=== PATIENT | male | born 1955 | race Hispanic/Latino ===

== ENCOUNTER 2022-07-10 12:28 | Emergency (ER) | payer OTHER ==
--- OUTSIDE RECORDS SUMMARY | 2022-07-10 12:31 | XMS REPORT | Continuity of Care Document ---
:1955 Author Organization [facility] t Address [address] [place] [address] Care Team Providers Name Role Phone [place] Jackson MICHEL Primary Care Physician [phone] DAVID BLAS Attending Clinician Unavailable CHANTELL BERGMAN Attending Clinician Unavailable CHANTELL BERGMAN Attending Clinician Unavailable MARY CATHERINE Attending Clinician Unavailable Payers Payer Name Policy Type Policy Number Effective Date Expiration Date S ource HIM BCBS BLUE [id number] 2015 [facility] 00:00:00 Problems This patient has no known problems. Allergies, Adverse Reactions, Alerts Allergy Allergy Status Severity Reaction(s) Onset Inactive Treating Comm ents Source Name Type Date Date Clinician NO KNOWN Drug Active Univers ALLERGIE Class ity [facility] Medications Ordered Filled Start Stop Current Ordering Indication Dosage Frequency Signature Comments Components Source Medication Medication Date Date Medication? Clinician (SIG) Name Name TAKE 2021-0 No TABLET BY 8-09 MOUTH THREE 00:00: TIMES DAILY 00 TAKE 2021-0 No 125 TABLET BY 8-09 MOUTH EVERY 00:00: 8 HOURS 00 NEEDED TAKE 2021-0 No TABLET BY 8-08 MOUTH ONCE 00:00: DAILY 00 TAKE 1 2021-0 No TABLET BY 8-03 MOUTH THREE 00:00: TIMES DAILY 00 FOR 30 DAYS TAKE 1 2021-0 No 100 CAPSULE BY 8-03 MOUTH ONCE 00:00: DAILY FOR 00 30 DAYS TAKE 30 ML 2-0 No BY MOUTH 8-03 ONCE DAILY 00:00: NEEDED 00 FOR CONSTIPATIO N TAKE 2021-0 No TABLET BY 8-03 MOUTH THREE 00:00: TIMES DAILY 00 FOR 30 DAYS TAKE 1 2021-0 No 100 CAPSULE BY 8-03 MOUTH ONCE 00:00: DAILY FOR 00 30 DAYS TAKE 30 ML 2022-0 No BY MOUTH 8-03 ONCE DAILY 00:00: NEEDED 00 FOR CONSTIPATIO N lisinopril 2-0 No 1mg 20 5-19 mg-hydrochl 00:00: orothiazide 00 12.5 mg tablet metformin 2-0 No 1mg 1,000 mg 5-19 tablet 00:00: 00 carbidopa 2-0 No 1mg 10 5-19 mg-levodopa 00:00: 100 mg 00 tablet amantadine 2-0 No 1mg HCl 100 mg 5-19 capsule 00:00: 00 Dose 2-0 No Unknown 5-19 00:00: 00 Dose 2-0 No Unknown 5-19 00:00: 00 lisinopril 2-0 No 1mg 20 5-19 mg-hydrochl 00:00: orothiazide 00 12.5 mg tablet metformin 2-0 No 1mg 1,000 mg 5-19 tablet 00:00: 00 carbidopa 2-0 No 1mg 10 5-19 mg-levodopa 00:00: 100 mg 00 tablet amantadine 2-0 No 1mg HCl 100 mg 5-19 capsule 00:00: 00 Dose 2-0 No Unknown 5-19 00:00: 00 Dose 2-0 No Unknown 5-19 00:00: 00 Dose 2-0 No Unknown 5-09 00:00: 00 Dose 2-0 No Unknown 5-09 00:00: 00 Vitamin D2 2-0 No 1(50,00 1,250 mcg 3-14 0 unit) (50,000 00:00: unit) 00 capsule Vitamin D2 2-0 No 1(50,00 1,250 mcg 3-14 0 unit) (50,000 00:00: unit) 00 capsule Dose 2-0 No Unknown 3-10 00:00: 00 Dose 2-0 No Unknown 3-10 00:00: 00 Dose 2-0 No Unknown 3-10 00:00: 00 Dose 2-0 No Unknown 3-10 00:00: 00 Dose 2-0 No Unknown 3-10 00:00: 00 Dose 2022-0 No Unknown 3-10 00:00: 00 Dose 2-0 No Unknown 3-10 00:00: 00 Dose 2-0 No Unknown 3-10 00:00: 00 Dose 2022-0 No Unknown 3-10 00:00: 00 Dose 2022-0 No Unknown 3-10 00:00: 00 Dose 2022-0 No Unknown 3-10 00:00: 00 Dose 2022-0 No Unknown 3-10 00:00: 00 Dose 2022-0 No Unknown 3-10 00:00: 00 Dose 2022-0 No Unknown 3-10 00:00: 00 Dose 2022-0 No Unknown 3-10 00:00: 00 Dose 2022-0 No Unknown 3-10 00:00: 00 Dose 2022-0 No Unknown 3-10 00:00: 00 Dose 2022-0 No Unknown 3-10 00:00: 00 Dose 2022-0 No Unknown 3-10 00:00: 00 Dose 2022-0 No Unknown 3-10 00:00: 00 Dose 2022-0 No Unknown 3-10 00:00: 00 Dose 2022-0 No Unknown 3-10 00:00: 00 Dose 2022-0 No Unknown 3-10 00:00: 00 Dose 2022-0 No Unknown 3-10 00:00: 00 Dose 2022-0 No Unknown 3-10 00:00: 00 Dose 2022-0 No Unknown 3-10 00:00: 00 Dose 2022-0 No Unknown 3-10 00:00: 00 Dose 2022-0 No Unknown 3-10 00:00: 00 Dose 2022-0 No Unknown 3-10 00:00: 00 Dose 2022-0 No Unknown 3-10 00:00: 00 Dose 2022-0 No Unknown 3-10 00:00: 00 Dose 2022-0 No Unknown 3-10 00:00: 00 Dose 2022-0 No Unknown 3-10 00:00: 00 Dose 2022-0 No Unknown 3-10 00:00: 00 Dose 2022-0 No Unknown 3-10 00:00: 00 Dose 2022-0 No Unknown 3-10 00:00: 00 ciprofloxac 2022-0 No 1mg in 500 mg 2-16 tablet 00:00: 00 meclizine 2-0 No 1mg 12.5 mg 2-16 tablet 00:00: 00 lactulose 2-0 No 30gram/ 10 gram/15 2-16 15 mL mL oral 00:00: solution 00 ciprofloxac 2-0 No 1mg in 500 mg 2-16 tablet 00:00: 00 meclizine 2-0 No 1mg 12.5 mg 2-16 tablet 00:00: 00 lactulose 2-0 No 30gram/ 10 gram/15 2-16 15 mL mL oral 00:00: solution 00 lisinopril 2-0 No 1mg 20 2-15 mg-hydrochl 00:00: orothiazide 00 12.5 mg tablet metformin 2-0 No 1mg 1,000 mg 2-15 tablet 00:00: 00 amantadine 2-0 No 1mg HCl 100 mg 2-15 capsule 00:00: 00 lisinopril 2-0 No 1mg 20 2-15 mg-hydrochl 00:00: orothiazide 00 12.5 mg tablet metformin 2-0 No 1mg 1,000 mg 2-15 tablet 00:00: 00 amantadine 2-0 No 1mg HCl 100 mg 2-15 capsule 00:00: 00 Vital Signs Vital Name Observation Time Observation Value Comments Source BP Systolic 2022-06-15 17:28:00 96 mm[Hg] BP Diastolic 2022-06-15 17:28:00 63 mm[Hg] Weight Measured 2022-06-15 17:28:00 226.80 pounds Height Measured 2022-06-15 17:28:00 71.00 inches Body Temperature 2022-06-15 17:28:00 98.20 degrees Heart Rate 2022-06-15 17:28:00 102.00 /min Respiratory Rate 2022-06-15 17:28:00 18.00 /min BP Systolic 2022-06-09 16:42:00 127 mm[Hg] BP Diastolic 2022-06-09 16:42:00 76 mm[Hg] Weight Measured 2022-06-09 16:42:00 225.40 pounds Height Measured 2022-06-09 16:42:00 71.00 inches Body Temperature 2022-06-09 16:42:00 97.80 degrees Heart Rate 2022-06-09 16:42:00 83.00 /min Respiratory Rate 2022-06-09 16:42:00 BP Systolic 2022-03-25 13:24:00 135 mm[Hg] BP Diastolic 2022-03-25 13:24:00 79 mm[Hg] Weight Measured 2022-03-25 13:24:00 231.60 pounds Height Measured 2022-03-25 13:24:00 71.00 inches Body Temperature 2022-03-25 13:24:00 97.40 degrees Heart Rate 2022-03-25 13:24:00 77.00 /min Respiratory Rate 2022-03-25 13:24:00 BP Systolic 2021-12-22 16:49:00 147 mm[Hg] BP Diastolic 2021-12-22 16:49:00 84 mm[Hg] Weight Measured 2021-12-22 16:49:00 239.60 pounds Height Measured 2021-12-22 16:49:00 71.00 inches Body Temperature 2021-12-22 16:49:00 97.90 degrees Heart Rate 2021-12-22 16:49:00 85.00 /min Respiratory Rate 2021-12-22 16:49:00 16.00 /min Procedures This patient has no known procedures. Plan of Care Planned Activity Planned Date Details Comments Source Goal Plan of Care Note [code = 33799-1] Goal Plan of Care Note [code = 67460-4] Goal Plan of Care Note [code = 04671-7] Goal Plan of Care Note [code = 19909-3] Goal Plan of Care Note [code = 37257-0] Goal Plan of Care Note [code = 88983-7] Goal Plan of Care Note [code = 87997-7] Goal Plan of Care Note [code = 06828-9] Goal Plan of Care Note [code = 27753-4] Goal Plan of Care Note [code = 44034-7] Goal Plan of Care Note [code = 24889-6] Goal Plan of Care Note [code = 42502-0] Goal Plan of Care Note [code = 12517-6] Goal Plan of Care Note [code = 88211-9] Goal Plan of Care Note [code = 51472-0] Goal Plan of Care Note [code = 15684-6] Goal Plan of Care Note [code = 43798-5] Goal Plan of Care Note [code = 69520-5] Goal Plan of Care Note [code = 13427-2] Goal Plan of Care Note [code = 68075-0] Goal Plan of Care Note [code = 74663-8] Goal Plan of Care Note [code = 95006-3] Encounters Start End Encounter Admission Attending Care Care Encounter Source Date/Time Date/Time Type Type Clinicians Facility Department ID 2022-06-15 2022-06-15 Outpatient [id number] 00:00:00 00:00:00 Visit [id number] 2022-06-09 2022-06-09 Outpatient [id number] 00:00:00 00:00:00 Visit [id number] 2021-04-15 2021-04-15 Outpatient Diego BLAS [facility] [id number] Univers 09:00:00 09:00:00 DAVID [facility] 2021-02-23 2021-02-23 Outpatient CHANTELL JIMENEZ [facility] [id number] Univers 09:20:00 09:20:00 CHANTELL BERGMAN [facility] 2021-02-23 2021-02-23 Outpatient CHANTELL JIMENEZ [facility] [id number] Univers 09:20:00 09:20:00 CHANTELL BERGMAN [id number] [facility] 2020-09-29 2020-09-29 Outpatient Diego CATHERINE [facility] [id number] Univers 15:40:00 15:40:00 MARY [id number] ity o f [facility] 2020-09-29 2020-09-29 Outpatient Diego CATHERINE [facility] [id number] Univers 15:40:00 15:40:00 MARY tuttle o f [facility] 2020-08-25 2020-08-25 Outpatient CHANTELL JIMENEZ [facility] [id number] Univers 10:00:00 10:00:00 CHANTELL BERGMAN [facility] 2020-08-11 2020-08-11 Emergency X [facility] ERT [id number] Univers 16:03:00 16:03:00 [facility] Results Test Description Test Time Test Comments Results Result Comments Source VITAMIN D, 25 OH 2021-12-29 03:49:41 Test Item Value Reference Range Interpretation Comme nts VITAMIN D, 25 OH (test code 15 NG/ML SEE BELOW L NOTE: 25-HYDROXYVITAMIN D ASSAY = 4958) INCLUDES 25-HYD ROXYVITAMIN D2 AND D3. METHODOLOGY IS CHEMILUMINESCENT IMMUNOASSAY. INTERPRETIVE RANGES PED IATRIC (<17 YEARS) . . . . . . . . . . . NG/ML 20-100ADULT: INSUFFICIENT . . . . . . . . . . . . . . NG/ML <20 S UBOPTIMAL . . . . . . . . . . . . . . . NG/ML 20-29 OPTIMAL . . . . . . . . . . . . . . . . . NG/ML 30-100 U NLESS OTHERWISE INDICATED, ALL TESTING PERFORMED ATCLINICAL PATH [employer] [address] [place] [address] LABOR[address] DIRE CTOR: JAVAN HUDSON M.D. CLIA NUMBER [id number] [facility] [place]. [id number] VITAMIN D, 25 [id number] 00:00:00 Test Item Value Reference Range Interpretation Comments VITAMIN D, 25 OH (test code = 4958) 15 NG/ML VITAMIN D, 25 [id number] 00:00:00 Test Item Value Reference Range Interpretation Comments VITAMIN D, 25 OH (test code = 4958) 15 NG/ML VITAMIN D, 25 [id number] 00:00:00 Test Item Value Reference Range Interpretation Comments VITAMIN D, 25 OH (test code = 4958) 15 NG/ML TSH, THIRD [id number] 01:22:52 Test Item Value Reference Range Interpretation Comments TSH, THIRD GENERATION (test code 1.500 UIU/ML 0.400-4.100 = 2821) VITAMIN [id number] 01:22:52 Test Item Value Reference Range Interpretation Comments VITAMIN B-12 (test code = 2840) 424 PG/ML 200-950 COMPREHENSIVE METABOLIC [id number] 00:35:57 Test Item Value Reference Range Interpretation Comments GLUCOSE (test code = 95 MG/DL 70-99 2216) BUN (test code = 9 MG/DL 8-23 2207) CREATININE (test 0.80 MG/DL 0.80-1.40 code = 221) eGFR (2020 CKD-EPI) 99 ML/MIN/1.73 >60 (test code = 49259) CALC BUN/CREAT (test 11 RATIO 6-28 code = 223) SODIUM (test code = 136 MEQ/L 749-994 9344) POTASSIUM (test code 4.1 MEQ/L 3.5-5.4 = 2227) CHLORIDE (test code 101 MEQ/L 95-107 = 2214) CARBON DIOXIDE (test 19 MEQ/L 19-31 code = 2205) CALCIUM (test code = 9.2 MG/DL 8.5-10.5 2208) PROTEIN, TOTAL (test 7.4 G/DL 6.1-8.3 code = 2228) ALBUMIN (test code = 4.3 G/DL 3.5-5.2 2200) CALC GLOBULIN (test 3.1 G/DL 1.9-3.7 code = 2239) CALC A/G RATIO (test 1.4 RATIO 1.0-2.6 code = 2233) BILIRUBIN, TOTAL 0.3 MG/DL See_Comment [Automated message] (test code = 2206) The syste m which generated this result transmit gilberto reference range : <=1.2. The refe rence range was not u sed to interpret th is result as normal/abnormal . ALKALINE PHOSPHATASE 96 U/L 40-123 (test code = 2203) AST (test code = 11 U/L 9-50 2217) ALT (test code = 11 U/L 5-50 2218) LIPID [id number] 00:35:57 Test Item Value Reference Range Interpretation Comments CHOLESTEROL (test 192 MG/DL <200 code = 2210) TRIGLYCERIDES (test 130 MG/DL <150 code = 2232) HDL CHOLESTEROL (test 38 MG/DL >39 L code = 222) CALC LDL CHOL (test 129 MG/DL <100 H NOTE: C ALCULATED LDL code = 2237) IS BASED ON JESSY-NORTH METHOD WHICHINCLUDES ADJUSTABLE TRIGLYCERIDE:VL DL CHOLESTEROL RAT IO.THIS FACTOR VARIES B Y MEASURED TRIGLY CERIDE AND NON-HDLCHOL ESTEROL CONCENTRATIONS WITH INCREASED CALCU LATED LDL SEENIN HIGH ER TRIGLYCERIDE OR LOWER NON-HDL SPECIME NS. FOR MOREINFORMATION , SEE CLIENT ANNOUNCE MENT AT [email or web address] RISK RATIO LDL/HDL 3.39 RATIO <3.55 (test code = 2238) COMPREHENSIVE METABOLIC [id number] 00:00:00 Test Item Value Reference Range Interpretation Comments GLUCOSE (test code = 2217) 95 MG/DL BUN (test code = 2208) 9 MG/DL CREATININE (test code = 2214) 0.80 MG/DL eGFR (2020 CKD-EPI) (test code 99 ML/MIN/1.73 = 38577) CALC BUN/CREAT (test code = 11 RATIO 5) SODIUM (test code = 2231) 136 MEQ/L POTASSIUM (test code = 2228) 4.1 MEQ/L CHLORIDE (test code = 2215) 101 MEQ/L CARBON DIOXIDE (test code = 19 MEQ/L 2205) CALCIUM (test code = 2209) 9.2 MG/DL PROTEIN, TOTAL (test code = 7.4 G/DL 2228) ALBUMIN (test code = 2201) 4.3 G/DL CALC GLOBULIN (test code = 3.1 G/DL 2239) CALC A/G RATIO (test code = 1.4 RATIO 2233) BILIRUBIN, TOTAL (test code = 0.3 MG/DL 2206) ALKALINE PHOSPHATASE (test 96 U/L code = 2204) AST (test code = 2218) 11 U/L ALT (test code = 2219) 11 U/L LIPID [id number] 00:00:00 Test Item Value Reference Range Interpretation Comments CHOLESTEROL (test code = 2210) 192 MG/DL TRIGLYCERIDES (test code = 2232) 130 MG/DL HDL CHOLESTEROL (test code = 2220) 38 MG/DL CALC LDL CHOL (test code = 2237) 129 MG/DL RISK RATIO LDL/HDL (test code = 3.39 RATIO 2238) [id number] 00:00:00 Test Item Value Reference Range Interpretation Comments TSH, THIRD GENERATION (test code 1.500 UIU/ML = 2821) [id number] 00:00:00 Test Item Value Reference Range Interpretation Comments TSH, THIRD GENERATION (test code 1.500 UIU/ML = 2821) VITAMIN [id number] 00:00:00 Test Item Value Reference Range Interpretation Comments VITAMIN B-12 (test code = 2840) 424 PG/ML VITAMIN [id number] 00:00:00 Test Item Value Reference Range Interpretation Comments VITAMIN B-12 (test code = 2840) 424 PG/ML COMPREHENSIVE METABOLIC [id number] 00:00:00 Test Item Value Reference Range Interpretation Comments GLUCOSE (test code = 2217) 95 MG/DL BUN (test code = 2208) 9 MG/DL CREATININE (test code = 2214) 0.80 MG/DL eGFR (2020 CKD-EPI) (test code 99 ML/MIN/1.73 = 13319) CALC BUN/CREAT (test code = 11 RATIO 2235) SODIUM (test code = 2231) 136 MEQ/L POTASSIUM (test code = 2228) 4.1 MEQ/L CHLORIDE (test code = 2215) 101 MEQ/L CARBON DIOXIDE (test code = 19 MEQ/L 2205) CALCIUM (test code = 2209) 9.2 MG/DL PROTEIN, TOTAL (test code = 7.4 G/DL 2228) ALBUMIN (test code = 2201) 4.3 G/DL CALC GLOBULIN (test code = 3.1 G/DL 2240) CALC A/G RATIO (test code = 1.4 RATIO 4) BILIRUBIN, TOTAL (test code = 0.3 MG/DL 2206) ALKALINE PHOSPHATASE (test 96 U/L code = 2204) AST (test code = 2218) 11 U/L ALT (test code = 2219) 11 U/L COMPREHENSIVE METABOLIC [id number] 00:00:00 Test Item Value Reference Range Interpretation Comments GLUCOSE (test code = 2217) 95 MG/DL BUN (test code = 2208) 9 MG/DL CREATININE (test code = 2214) 0.80 MG/DL eGFR (2020 CKD-EPI) (test code 99 ML/MIN/1.73 = 25077) CALC BUN/CREAT (test code = 11 RATIO 2235) SODIUM (test code = 2231) 136 MEQ/L POTASSIUM (test code = 2228) 4.1 MEQ/L CHLORIDE (test code = 2215) 101 MEQ/L CARBON DIOXIDE (test code = 19 MEQ/L 2206) CALCIUM (test code = 2209) 9.2 MG/DL PROTEIN, TOTAL (test code = 7.4 G/DL 2228) ALBUMIN (test code = 2201) 4.3 G/DL CALC GLOBULIN (test code = 3.1 G/DL 2240) CALC A/G RATIO (test code = 1.4 RATIO 2234) BILIRUBIN, TOTAL (test code = 0.3 MG/DL 2206) ALKALINE PHOSPHATASE (test 96 U/L code = 2204) AST (test code = 2218) 11 U/L ALT (test code = 2219) 11 U/L LIPID [id number] 00:00:00 Test Item Value Reference Range Interpretation Comments CHOLESTEROL (test code = 2210) 192 MG/DL TRIGLYCERIDES (test code = 2232) 130 MG/DL HDL CHOLESTEROL (test code = 2220) 38 MG/DL CALC LDL CHOL (test code = 2237) 129 MG/DL RISK RATIO LDL/HDL (test code = 3.39 RATIO 2238) LIPID [id number] 00:00:00 Test Item Value Reference Range Interpretation Comments CHOLESTEROL (test code = 2210) 192 MG/DL TRIGLYCERIDES (test code = 2232) 130 MG/DL HDL CHOLESTEROL (test code = 2220) 38 MG/DL CALC LDL CHOL (test code = 2237) 129 MG/DL RISK RATIO LDL/HDL (test code = 3.39 RATIO 2238) [id number] 00:00:00 Test Item Value Reference Range Interpretation Comments TSH, THIRD GENERATION (test code 1.500 UIU/ML = 2821) [id number] 00:00:00 Test Item Value Reference Range Interpretation Comments TSH, THIRD GENERATION (test code 1.500 UIU/ML = 2821) [id number] 00:00:00 Test Item Value Reference Range Interpretation Comments TSH, THIRD GENERATION (test code 1.500 UIU/ML = 2821) VITAMIN [id number] 00:00:00 Test Item Value Reference Range Interpretation Comments VITAMIN B-12 (test code = 2840) 424 PG/ML VITAMIN [id number] 00:00:00 Test Item Value Reference Range Interpretation Comments VITAMIN B-12 (test code = 2840) 424 PG/ML VITAMIN [id number] 00:00:00 Test Item Value Reference Range Interpretation Comments VITAMIN B-12 (test code = 2840) 424 PG/ML HEMOGLOBIN [id number] 03:11:33 Test Item Value Reference Range Interpretation Comments HEMOGLOBIN A1c (test code = 57009) 6.0 % 4.2-5.6 H CBC W/AUTO DIFF WITH [id number] 02:45:06 Test Item Value Reference Range Interpretation Comments WBC (test code = 10.6 K/UL 3.5-11.0 1001) RBC (test code = 4.83 M/UL 4.50-6.10 1002) HEMOGLOBIN (test code 14.3 G/DL 13.5-17.0 = 1003) HEMATOCRIT (test code 42.2 % 40.0-51.0 = 1004) MCV (test code = 87.4 fL 80.0-99.0 1005) MCH (test code = 29.6 PG 25.0-33.0 1006) MCHC (test code = 33.9 G/DL 31.0-36.0 1007) RDW (test code = 13.9 % 11.5-15.0 1038) NEUTROPHILS (test 60.8 % code = 1008) LYMPHOCYTES (test 28.9 % code = 1010) MONOCYTES (test code 7.5 % = 1011) EOSINOPHILS (test 1.8 % code = 1012) BASOPHILS (test code 0.8 % = 1013) IMMATURE GRANULOCYTES 0.2 % (test code = 1036) NUCLEATED RBCS (test 0.0 /100 WBC'S See_Comment [Aut omated code = 1065) message] The sy stem which generated this result transmitted reference range : 0.0. The refere nce range was not u sed to interpret th is result as normal/abnormal . PLATELET COUNT (test 351 K/UL 130-400 code = 1015) ABSOLUTE NEUTROPHILS 6.46 K/UL 1.50-7.50 (test code = 1066) ABSOLUTE LYMPHOCYTES 3.07 K/UL 1.00-4.00 (test code = 1067) ABSOLUTE MONOCYTES 0.80 K/UL 0.20-1.00 (test code = 1068) ABSOLUTE EOSINOPHILS 0.19 K/UL 0.00-0.50 (test code = 1040) ABSOLUTE BASOPHILS 0.09 K/UL 0.00-0.20 (test code = 1069) ABS IMMATURE 0.02 K/UL 0.00-0.10 GRANULOCYTES (test code = 1020) ABS NUCLEATED RBCS 0.00 K/UL 0.00-0.11 (test code = 40786) HEMOGLOBIN [id number] 00:00:00 Test Item Value Reference Range Interpretation Comments HEMOGLOBIN A1c (test code = 16791) 6.0 % HEMOGLOBIN [id number] 00:00:00 Test Item Value Reference Range Interpretation Comments HEMOGLOBIN A1c (test code = 28310) 6.0 % CBC W/AUTO [id number] 00:00:00 Test Item Value Reference Range Interpretation Comments WBC (test code = 1001) 10.6 K/UL RBC (test code = 1002) 4.83 M/UL HEMOGLOBIN (test code = 1003) 14.3 G/DL HEMATOCRIT (test code = 1004) 42.2 % MCV (test code = 1005) 87.4 fL MCH (test code = 1006) 29.6 PG MCHC (test code = 1007) 33.9 G/DL RDW (test code = 1038) 13.9 % NEUTROPHILS (test code = 1008) 60.8 % LYMPHOCYTES (test code = 1010) 28.9 % MONOCYTES (test code = 1011) 7.5 % EOSINOPHILS (test code = 1012) 1.8 % BASOPHILS (test code = 1013) 0.8 % IMMATURE GRANULOCYTES (test 0.2 % code = 1036) NUCLEATED RBCS (test code = 0.0 /100WBC'S 1065) PLATELET COUNT (test code = 351 K/UL 1015) ABSOLUTE NEUTROPHILS (test code 6.46 K/UL = 1066) ABSOLUTE LYMPHOCYTES (test code 3.07 K/UL = 1067) ABSOLUTE MONOCYTES (test code = 0.80 K/UL 1068) ABSOLUTE EOSINOPHILS (test code 0.19 K/UL = 1040) ABSOLUTE BASOPHILS (test code = 0.09 K/UL 1069) ABS IMMATURE GRANULOCYTES (test 0.02 K/UL code = 1020) ABS NUCLEATED RBCS (test code = 0.00 K/UL 58183) CBC W/AUTO [id number] 00:00:00 Test Item Value Reference Range Interpretation Comments WBC (test code = 1001) 10.6 K/UL RBC (test code = 1002) 4.83 M/UL HEMOGLOBIN (test code = 1003) 14.3 G/DL HEMATOCRIT (test code = 1004) 42.2 % MCV (test code = 1005) 87.4 fL MCH (test code = 1006) 29.6 PG MCHC (test code = 1007) 33.9 G/DL RDW (test code = 1038) 13.9 % NEUTROPHILS (test code = 1008) 60.8 % LYMPHOCYTES (test code = 1010) 28.9 % MONOCYTES (test code = 1011) 7.5 % EOSINOPHILS (test code = 1012) 1.8 % BASOPHILS (test code = 1013) 0.8 % IMMATURE GRANULOCYTES (test 0.2 % code = 1036) NUCLEATED RBCS (test code = 0.0 /100WBC'S 1065) PLATELET COUNT (test code = 351 K/UL 1015) ABSOLUTE NEUTROPHILS (test code 6.46 K/UL = 1066) ABSOLUTE LYMPHOCYTES (test code 3.07 K/UL = 1067) ABSOLUTE MONOCYTES (test code = 0.80 K/UL 1068) ABSOLUTE EOSINOPHILS (test code 0.19 K/UL = 1040) ABSOLUTE BASOPHILS (test code = 0.09 K/UL 1069) ABS IMMATURE GRANULOCYTES (test 0.02 K/UL code = 1020) ABS NUCLEATED RBCS (test code = 0.00 K/UL 53496) HEMOGLOBIN [id number] 00:00:00 Test Item Value Reference Range Interpretation Comments HEMOGLOBIN A1c (test code = 60653) 6.0 % HEMOGLOBIN [id number] 00:00:00 Test Item Value Reference Range Interpretation Comments HEMOGLOBIN A1c (test code = 45215) 6.0 % HEMOGLOBIN [id number] 00:00:00 Test Item Value Reference Range Interpretation Comments HEMOGLOBIN A1c (test code = 17293) 6.0 % CBC W/AUTO [id number] 00:00:00 Test Item Value Reference Range Interpretation Comments WBC (test code = 1001) 10.6 K/UL RBC (test code = 1002) 4.83 M/UL HEMOGLOBIN (test code = 1003) 14.3 G/DL HEMATOCRIT (test code = 1004) 42.2 % MCV (test code = 1005) 87.4 fL MCH (test code = 1006) 29.6 PG MCHC (test code = 1007) 33.9 G/DL RDW (test code = 1038) 13.9 % NEUTROPHILS (test code = 1008) 60.8 % LYMPHOCYTES (test code = 1010) 28.9 % MONOCYTES (test code = 1011) 7.5 % EOSINOPHILS (test code = 1012) 1.8 % BASOPHILS (test code = 1013) 0.8 % IMMATURE GRANULOCYTES (test 0.2 % code = 1036) NUCLEATED RBCS (test code = 0.0 /100WBC'S 1065) PLATELET COUNT (test code = 351 K/UL 1015) ABSOLUTE NEUTROPHILS (test code 6.46 K/UL = 1066) ABSOLUTE LYMPHOCYTES (test code 3.07 K/UL = 1067) ABSOLUTE MONOCYTES (test code = 0.80 K/UL 1068) ABSOLUTE EOSINOPHILS (test code 0.19 K/UL = 1040) ABSOLUTE BASOPHILS (test code = 0.09 K/UL 1069) ABS IMMATURE GRANULOCYTES (test 0.02 K/UL code = 1020) ABS NUCLEATED RBCS (test code = 0.00 K/UL 71927) CBC W/AUTO [id number] 00:00:00 Test Item Value Reference Range Interpretation Comments WBC (test code = 1001) 10.6 K/UL RBC (test code = 1002) 4.83 M/UL HEMOGLOBIN (test code = 1003) 14.3 G/DL HEMATOCRIT (test code = 1004) 42.2 % MCV (test code = 1005) 87.4 fL MCH (test code = 1006) 29.6 PG MCHC (test code = 1007) 33.9 G/DL RDW (test code = 1038) 13.9 % NEUTROPHILS (test code = 1008) 60.8 % LYMPHOCYTES (test code = 1010) 28.9 % MONOCYTES (test code = 1011) 7.5 % EOSINOPHILS (test code = 1012) 1.8 % BASOPHILS (test code = 1013) 0.8 % IMMATURE GRANULOCYTES (test 0.2 % code = 1036) NUCLEATED RBCS (test code = 0.0 /100WBC'S 1065) PLATELET COUNT (test code = 351 K/UL 1015) ABSOLUTE NEUTROPHILS (test code 6.46 K/UL = 1066) ABSOLUTE LYMPHOCYTES (test code 3.07 K/UL = 1067) ABSOLUTE MONOCYTES (test code = 0.80 K/UL 1068) ABSOLUTE EOSINOPHILS (test code 0.19 K/UL = 1040) ABSOLUTE BASOPHILS (test code = 0.09 K/UL 1069) ABS IMMATURE GRANULOCYTES (test 0.02 K/UL code = 1020) ABS NUCLEATED RBCS (test code = 0.00 K/UL 37539) CBC W/AUTO [id number] 00:00:00 Test Item Value Reference Range Interpretation Comments WBC (test code = 1001) 10.6 K/UL RBC (test code = 1002) 4.83 M/UL HEMOGLOBIN (test code = 1003) 14.3 G/DL HEMATOCRIT (test code = 1004) 42.2 % MCV (test code = 1005) 87.4 fL MCH (test code = 1006) 29.6 PG MCHC (test code = 1007) 33.9 G/DL RDW (test code = 1038) 13.9 % NEUTROPHILS (test code = 1008) 60.8 % LYMPHOCYTES (test code = 1010) 28.9 % MONOCYTES (test code = 1011) 7.5 % EOSINOPHILS (test code = 1012) 1.8 % BASOPHILS (test code = 1013) 0.8 % IMMATURE GRANULOCYTES (test 0.2 % code = 1036) NUCLEATED RBCS (test code = 0.0 /100WBC'S 1065) PLATELET COUNT (test code = 351 K/UL 1015) ABSOLUTE NEUTROPHILS (test code 6.46 K/UL = 1066) ABSOLUTE LYMPHOCYTES (test code 3.07 K/UL = 1067) ABSOLUTE MONOCYTES (test code = 0.80 K/UL 1068) ABSOLUTE EOSINOPHILS (test code 0.19 K/UL = 1040) ABSOLUTE BASOPHILS (test code = 0.09 K/UL 1069) ABS IMMATURE GRANULOCYTES (test 0.02 K/UL code = 1020) ABS NUCLEATED RBCS (test code = 0.00 K/UL 68492)
[2022-07-10 13:08] LABS: Absolute Lymphocytes (CBC) 3.8 K/uL (0.7-4.9); Hematocrit 42.3 % (39.6-49.0); Lymphocytes % 29.3 % (15.3-44.8); MCV 85.4 fL (80-100); MPV 7.1 fL (7.6-11.3); RBC Red Blood Cell Count 4.95 M/uL (4.33-5.43)
[2022-07-10] MEDS ORDERED: NA CHLORIDE 0.9% 1,000 ML ONE (13:09)
[2022-07-10 13:26] LABS: Potassium 3.5 mmol/L (3.5-5.1); Troponin High Sensitivity 4.3 pg/mL (<58.9)
--- NOTE | 2022-07-10 13:46 | RAD REPORT ---
EXAM DESCRIPTION: CT - Head Brain Wo Cont - 07/10/2022 1:31 pm CLINICAL HISTORY: Dizzy COMPARISON: <Comparisons> TECHNIQUE: All CT scans are performed using dose optimization technique as appropriate and may inclu de automated exposure control or mA/KV adjustment according to patient size. FINDINGS: No intracranial hemorrhage, hydrocephalus or extra-axial fluid collection.No areas of brai n edema or evidence of midline shift. The paranasal sinuses and mastoids are clear. The calvarium is intact. IMPRESSION: No acute intracranial abnormality.
--- NOTE | 2022-07-10 14:12 | RAD REPORT ---
EXAM DESCRIPTION: RAD - Chest Single View - 07/10/2022 1:56 pm CLINICAL HISTORY: dizziness COMPARISON: No comparisons FINDINGS: Lines: None. Lungs: No evidence of edema or pneumonia. Pleural: No significant pleural effusions or pneumothorax. Cardiac: The heart size is within normal limits. Mediastinum: Within normal limits. Bones: No acute fractures. Other: None IMPRESSION: No acute cardiopulmonary disease.
--- NOTE | 2022-07-10 14:40 | ER ---
Nurse's Notes [facility] Name: Macario Macias Age: 67 yrs Sex: Male : 1955 Arrival Date: 07/10/2022 Time: 12:29 Bed 3 Private MD: Diagnosis: Weakness;Dizziness and giddiness Presentation: 07/10 12:37 Chief complaint: Patient's son or daughter states: He just got finished cutting the iw grass and when he came in he said he felt weak. We checked his blood pressure and it was a little low. He is anxious and doesn't feel good. Coronavirus screen: At this time, the client does not indicate any symptoms associated with coronavirus-19. Ebola Screen: No symptoms or risks identified at this time. Initial Sepsis Screen: Does the patient meet any 2 criteria? No. Patient's initial sepsis screen is negative. Does the patient have a suspected source of infection? No. Patient's initial sepsis screen is negative. Risk Assessment: Do you want to hurt yourself or someone else? Patient reports no desire to harm self or others. Onset of symptoms was July 10, 2022. 12:37 Method Of Arrival: Wheelchair iw 12:37 Acuity: CRUZ 3 iw Triage Assessment: 12:40 General: Appears in no apparent distress. uncomfortable, well groomed, well developed, iw Behavior is anxious. Pain: Denies pain. EENT: No deficits noted. No signs and/or symptoms were reported regarding the EENT system. Neuro: Level of Consciousness is awake, alert, obeys commands, Oriented to person, place, time, situation, Student Life Coordinator are equal bilaterally Moves all extremities. Gait is unsteady, Speech is normal, Facial symmetry appears normal, Reports weakness Denies blurred vision dizziness, headache. Cardiovascular: No deficits noted. Chest pain is denied. Respiratory: No deficits noted. Denies shortness of breath. GI: No deficits noted. No signs and/or symptoms were reported involving the gastrointestinal system. : No deficits noted. No signs and/or symptoms were reported regarding the genitourinary system. Derm: No deficits noted. No signs and/or symptoms reported regarding the dermatologic system. Musculoskeletal: No deficits noted. No signs and/or symptoms reported regarding the musculoskeletal system. Historical: - Allergies: 12:40 No Known Allergies; iw - Home Meds: 12:40 metformin 500 mg Oral Tb24 1 tab once daily [Active]; lisinopril 10 mg Oral tab 1 tab iw once daily [Active]; - PMHx: 12:40 Diabetes mellitus; Hypertensive disorder; iw - PSHx: 12:40 knee; iw - Immunization history:: Adult Immunizations up to date, Client reports receiving the 2nd dose of the Covid vaccine, Client reports receiving the 1st dose of the Covid vaccine. - Social history:: Smoking status: Patient denies any tobacco usage or history of. Screenin:43 Abuse screen: Denies threats or abuse. Denies injuries from another. Nutritional eh3 screening: No deficits noted. Tuberculosis screening: No symptoms or risk factors identified. Fall Risk IV access (20 points). Ambulatory Aid- None/Bed Rest/Nurse Assist (0 pts). Gait- Weak (10 pts.). Mental Status- Oriented to own ability (0 pts). Total Reina Fall Scale indicates Low Risk Score (25-44 pts). Fall prevention measures have been instituted. Side Rails Up X 2 Placed close to Nursing Station Frequent Obs/Assesments occuring Family Present and informed to notify staff if they need to leave bedside As available Patient and Family Educated on Fall Prevention Program and strategies. Assessment: 13:04 General: Appears distressed, uncomfortable, Behavior is cooperative, appropriate for eh3 age, anxious. Pain: Denies pain. Neuro: Level of Consciousness is awake, alert, obeys commands, Oriented to person, place, time, situation. Cardiovascular: Capillary refill < 3 seconds Patient's skin is warm and dry. Respiratory: Airway is patent Respiratory effort is even, labored. GI: Abdomen is flat, non-distended. : No signs and/or symptoms were reported regarding the genitourinary system. EENT: No signs and/or symptoms were reported regarding the EENT system. Derm: Skin is diaphoretic. Musculoskeletal: Circulation, motion, and sensation intact. Range of motion: intact in all extremities. Vital Signs: 12:37 BP 126 / 72; Pulse 87; Resp 18; Temp 97.9(O); Pulse Ox 100% on R/A; Weight 99.79 kg iw (R); Height 5 ft. 11 in. (180.34 cm); Pain 0/10; 12:43 BP 154 / 77; Pulse 55; Resp 20; Pulse Ox 100% on R/A; Pain 0/10; eh3 13:30 BP 102 / 65; Pulse 49; Resp 20; Pulse Ox 99% on R/A; Pain 0/10; eh3 14:20 BP 144 / 82 Sitting; Pulse 79; Resp 28; Pulse Ox 97% on R/A; eh3 14:22 BP 138 / 74 Supine; Pulse 80; Resp 29; Pulse Ox 96% on R/A; eh3 14:24 BP 130 / 66 Standing; Pulse 80; Resp 18; Pulse Ox 97% on R/A; eh3 12:37 Body Mass Index 30.68 (99.79 kg, 180.34 cm) iw ED Course: 12:29 Patient arrived in ED. am2 12:40 Triage completed. iw 12:40 Arm band placed on right wrist. iw 12:43 Patient has correct armband on for positive identification. Placed in gown. Bed in low eh3 position. Call light in reach. Side rails up X2. Client placed on continuous cardiac and pulse oximetry monitoring. NIBP monitoring applied. Door closed. Noise minimized. Lights dimmed. Warm blanket given. 12:48 Alexus Dinero, RN is Primary Nurse. eh3 12:49 Selwyn Liang MD is Attending Physician. kdr 13:23 Inserted saline lock: 20 gauge in left forearm, using aseptic technique. bp 13:33 Head Brain Wo Cont In Process Unspecified. EDMS 13:57 XRAY Chest (1 view) In Process Unspecified. EDMS 14:54 No provider procedures requiring assistance completed. IV discontinued, intact, eh3 bleeding controlled, No redness/swelling at site. Administered Medications: 13:12 Drug: NS 0.9% 1000 ml Route: IV; Rate: 1 bolus; Site: left forearm; eh3 Medication: 14:54 VIS not applicable for this client. eh3 Outcome: 14:40 Discharge ordered by . kdr 14:54 Discharged to home ambulatory. eh3 14:54 Condition: stable 14:54 Discharge instructions given to patient, Instructed on discharge instructions, follow up and referral plans. Demonstrated understanding of instructions, follow-up care. 14:54 Patient left the ED. eh3 Signatures: Dispatcher [employer] EDMS Rittger, Selwyn, MD Ban Renteria, RN RN iw Elizabeth Gil am2 Arnulfo Mccormack, RN RN bp Alexus Dinero RN RN eh3
--- NOTE | 2022-07-10 14:40 | EDPHYS ---
Physician Documentation [facility] Name: Macario Macias Age: 67 yrs Sex: Male : 1955 Arrival Date: 07/10/2022 Time: 12:29 Bed 3 Private MD: ED Physician Selwyn Liang HPI: 07/10 16:03 This 67 yrs old Male presents to ER via Wheelchair with complaints of kdr Dizziness, Near Syncope, low blood pressure. 16:03 Patient was out mowing the grass and when he came in to the house, he became weak and kdr lightheaded. He felt like his vision was being limited and that he was seeing black spots. He has not had this before he is otherwise in his usual state of health. He was concerned that his glucose may be low.. Onset: The symptoms/episode began/occurred suddenly, just prior to arrival. Severity of symptoms: At their worst the symptoms were mild moderate just prior to arrival, in the emergency department the symptoms are unchanged. The patient has not experienced similar symptoms in the past. The patient has not recently seen a physician. Historical: - Allergies: 12:40 No Known Allergies; iw - Home Meds: 12:40 metformin 500 mg Oral Tb24 1 tab once daily [Active]; lisinopril 10 mg Oral tab 1 tab iw once daily [Active]; - PMHx: 12:40 Diabetes mellitus; Hypertensive disorder; iw - PSHx: 12:40 knee; iw - Immunization history:: Adult Immunizations up to date, Client reports receiving the 2nd dose of the Covid vaccine, Client reports receiving the 1st dose of the Covid vaccine. - Social history:: Smoking status: Patient denies any tobacco usage or history of. ROS: 16:03 Constitutional: Negative for fever, chills, and weight loss, Eyes: Negative for injury, kdr pain, redness, and discharge, Neck: Negative for injury, pain, and swelling, Cardiovascular: Negative for chest pain, palpitations, and edema, Respiratory: Negative for shortness of breath, cough, wheezing, and pleuritic chest pain, Abdomen/GI: Negative for abdominal pain, nausea, vomiting, diarrhea, and constipation, Back: Negative for injury and pain, : Negative for injury, bleeding, discharge, and swelling, MS/Extremity: Negative for injury and deformity, Skin: Negative for injury, rash, and discoloration, Psych: Negative for depression, anxiety, suicide ideation, homicidal ideation, and hallucinations, Allergy/Immunology: Negative for hives, rash, and allergies, Endocrine: Negative for neck swelling, polydipsia, polyuria, polyphagia, and marked weight changes, Hematologic/Lymphatic: Negative for swollen nodes, abnormal bleeding, and unusual bruising. 16:03 Neuro: Positive for dizziness, weakness, Negative for altered mental status, dizziness, headache, hearing loss, loss of consciousness, numbness, seizure activity, speech changes, syncope, near syncope, tinnitus, tremor, weakness. Exam: 12:58 Constitutional: This is a well developed, well nourished patient who is awake, alert, kdr and in no acute distress. Head/Face: Normocephalic, atraumatic. Eyes: Pupils equal round and reactive to light, extra-ocular motions intact. Lids and lashes normal. Conjunctiva and sclera are non-icteric and not injected. Cornea within normal limits. Periorbital areas with no swelling, redness, or edema. ENT: Nares patent. No nasal discharge, no septal abnormalities noted. Tympanic membranes are normal and external auditory canals are clear. Oropharynx with no redness, swelling, or masses, exudates, or evidence of obstruction, uvula midline. Mucous membranes moist. Neck: Trachea midline, no thyromegaly or masses palpated, and no cervical lymphadenopathy. Supple, full range of motion without nuchal rigidity, or vertebral point tenderness. No Meningismus. Chest/axilla: Normal chest wall appearance and motion. Nontender with no deformity. No lesions are appreciated. Cardiovascular: Regular rate and rhythm with a normal S1 and S2. No gallops, murmurs, or rubs. Normal PMI, no JVD. No pulse deficits. Respiratory: Lungs have equal breath sounds bilaterally, clear to auscultation and percussion. No rales, rhonchi or wheezes noted. No increased work of breathing, no retractions or nasal flaring. Abdomen/GI: Soft, non-tender, with normal bowel sounds. No distension or tympany. No guarding or rebound. No evidence of tenderness throughout. Back: No spinal tenderness. No costovertebral tenderness. Full range of motion. Skin: Warm, dry with normal turgor. Normal color with no rashes, no lesions, and no evidence of cellulitis. MS/ Extremity: Pulses equal, no cyanosis. Neurovascular intact. Full, normal range of motion. Psych: Awake, alert, with orientation to person, place and time. Behavior, mood, and affect are within normal limits. 12:58 ECG was reviewed by the Attending Physician. 12:58 Neuro: Orientation: is normal, Mentation: is normal, Memory: Cerebellar function: no acute changes, Motor: is normal, Sensation: is normal. 12:58 Psych: Behavior/mood is anxious, Affect is calm, Oriented to person, place, time, Patient has no thoughts/intents to harm self or others. Delusions/hallucinations are not present. Vital Signs: 12:37 BP 126 / 72; Pulse 87; Resp 18; Temp 97.9(O); Pulse Ox 100% on R/A; Weight 99.79 kg iw (R); Height 5 ft. 11 in. (180.34 cm); Pain 0/10; 12:43 BP 154 / 77; Pulse 55; Resp 20; Pulse Ox 100% on R/A; Pain 0/10; eh3 13:30 BP 102 / 65; Pulse 49; Resp 20; Pulse Ox 99% on R/A; Pain 0/10; eh3 14:20 BP 144 / 82 Sitting; Pulse 79; Resp 28; Pulse Ox 97% on R/A; eh3 14:22 BP 138 / 74 Supine; Pulse 80; Resp 29; Pulse Ox 96% on R/A; eh3 14:24 BP 130 / 66 Standing; Pulse 80; Resp 18; Pulse Ox 97% on R/A; eh3 12:37 Body Mass Index 30.68 (99.79 kg, 180.34 cm) iw MDM: 12:58 Data reviewed: vital signs, nurses notes, lab test result(s), EKG, radiologic studies. kdr Counseling: I had a detailed discussion with the patient and/or guardian regarding: the historical points, exam findings, and any diagnostic results supporting the discharge/admit diagnosis, lab results, radiology results, the need for outpatient follow up. 14:40 Patient medically screened. kdr 07/10 12:57 Order name: Basic Metabolic Panel; Complete Time: 13:39 kdr 07/10 12:57 Order name: CBC with Diff; Complete Time: 13:39 kdr 07/10 12:57 Order name: Troponin HS; Complete Time: 13:39 kdr 07/10 12:57 Order name: XRAY Chest (1 view); Complete Time: 14:22 kdr 07/10 12:57 Order name: CT Head Brain wo Cont kdr 07/10 13:01 Order name: Head Brain Wo Cont; Complete Time: 14:00 EDMD 07/10 12:57 Order name: EKG; Complete Time: 12:57 kdr 07/10 12:57 Order name: Cardiac monitoring; Complete Time: 12:58 [facility] 07/10 12:57 Order name: EKG - Nurse/Tech; Complete Time: 12:58 kdr 07/10 12:57 Order name: IV Saline Lock; Complete Time: 13:04 kdr 07/10 12:57 Order name: Labs collected and sent; Complete Time: 13:04 kdr 07/10 12:57 Order name: O2 Per Protocol; Complete Time: 12:58 kdr 07/10 12:57 Order name: O2 Sat Monitoring; Complete Time: 12:58 [facility] 07/10 14:08 Order name: Orthostatic Blood Pressure; Complete Time: 14:54 kdr EC:58 Rate is 92 beats/min. Rhythm is regular, Sinus Rhythm with No ectopy. QRS [place] is kdr Normal. NE interval is normal. QRS interval is normal. QT interval is normal. Clinical impression: NSR w/ Non-specific ST/T Changes. Administered Medications: 13:12 Drug: NS 0.9% 1000 ml Route: IV; Rate: 1 bolus; Site: left forearm; eh3 Disposition Summary: 07/10/22 14:40 Discharge Ordered Location: Home kdr Problem: new kdr Symptoms: have improved kdr Condition: Stable kdr Diagnosis - Weakness kdr - Dizziness and giddiness kdr Followup: kdr - With: Private Physician - When: 2 - 3 days - Reason: If symptoms return, Further diagnostic work-up, Recheck today's complaints, Continuance of care, Re-evaluation by your physician Discharge Instructions: - Discharge Summary Sheet kdr - Fatigue kdr - Weakness, [id number] kdr - Dizziness, [id number] kdr Forms: - Medication Reconciliation Form kdr - Thank You Letter kdr Signatures: Dispatcher [facility] Selwyn Liang MD MD kdr Ban Hart RN RN Dinero, Alexus, RN RN eh3
[2022-07-10 16:10] VITALS: TEMP 97.9
[2022-07-10 16:25] VITALS: BP 130/66; O2SAT 97
--- NOTE | 2022-07-12 11:33 | EKG ---
Test Date: 2022-07-10 Test Time: 12:56:48 Machinist: GURVINDER MEASUREMENT RESULTS: Intervals: Rate: 92 OR: 174 QRSD: 96 QT: 358 QTc: 442 [place]: P: 59 OR: 174 QRS: 27 T: 55 INTERPRETIVE STATEMENTS: Normal sinus rhythm Incomplete right bundle branch block Borderline ECG Compared to ECG 01/08/2008 10:40:22 Incomplete right bundle-branch block now present Electronically Signed On 07-12-22 11:32:40 CDT by Maninder Sanchez
== END 2022-07-10 14:54 | disposition home or self-care (01) ==
LOC: ER 12:28
DX: R53.1 Weakness (principal); R42 Dizziness and giddiness; E11.9 Type 2 diabetes mellitus without complications; I10 Essential (primary) hypertension
CPT/HCPCS: 93005; 85025; 80048; 36415; 84484; 70450; 71045; 99284; J7030